=== PATIENT | male | born 1950 | race Caucasian/White ===

== ENCOUNTER 2021-10-22 22:07 | Emergency (ER) | payer MEDICARE, BC ==
[2021-10-22] MEDS ORDERED: Cephalexin 500 MG Cap PO ONE (22:08)
[2021-10-22] MEDS ORDERED: Lidocaine 1% 30 ML SDV INJECT ONE (22:41)
[2021-10-22] MEDS ORDERED: Diphtheria,Pertussis(Acell),Tetanus Vaccine 0.5 ML Syringe IM ONE (22:41)
[2021-10-22] MEDS ORDERED: Bacitracin Oint 1 GM U/D Packet TOP ONE (22:41)
[2021-10-22] MEDS ORDERED: cefTRIAXone 1 GM Vial ONE (23:53)
[2021-10-22] MEDS ORDERED: cefTRIAXone 1 GM, Lidocaine 1% 2.1 ML IM ONE ×2 (23:54)
[2021-10-23] MEDS ORDERED: Mupirocin Oint 22 GM Tube ONE (00:15)
[2021-10-23] MEDS ORDERED: Cephalexin 500 MG Cap ONE (00:16)
== END 2021-10-23 00:24 | disposition home or self-care (01) ==
LOC: DL.ED 22:07
DX: S41.111A Laceration without foreign body of right upper arm, initial encounter (principal); Z23 Encounter for immunization; W23.1XXA Caught, crushed, jammed, or pinched between stationary objects, initial encounter
CPT/HCPCS: 12002; 90471; 90715; 96372; 99282; A9270; J0696